=== PATIENT | male | born 1940 | race Asian ===

== ENCOUNTER 2017-05-01 08:33 | Inpatient (IN) | payer MEDICARE, OTHER ==
[~2017-05-01] VITALS: Ht 172.7 cm; Wt 79.0 kg
[~2017-05-01 08:33] MED LIST: ASPI-1159 PO; ATOR40TA70 PO; BRIM5DRO OP; CLOP75TA33 PO; DORZ10DR7 OP; FINA5TAB11 PO; FISH1CAP38 PO; GLIM4TAB2 PO; INSNOV SUBCUT; INSU100I19 SQ; METF500T4 PO; RANO500T3 PO; SILO8CAP PO; TELM80TA5 PO; XALAO EACHEYE
[2017-05-01] MEDS ORDERED: SODIUM CHLORIDE 0.9% 1,000 ML IV ONE (08:58)
[2017-05-01] MEDS ORDERED: NITROGLYCERIN OINT 1GM/INCH UDPKT TD ONE (09:00)
[2017-05-01 09:39] LABS: CLARITY URINE CLOUDY (CLEAR); COLOR URINE YELLOW (YELLOW); GLUCOSE URINE 3+ (NEGATIVE); KETONES URINE NEGATIVE (NEGATIVE); LEUKOCYTE ESTERASE URINE 2+ (NEGATIVE); NITRITE URINE POSITIVE (NEGATIVE); OCCULT BLOOD URINE TRACE (NEGATIVE); PROTEIN URINE NEGATIVE (NEGATIVE); SPECIFIC GRAVITY URINE 1.024 (1.005-1.030); UROBILINOGEN URINE 0.2 E.U./dL (0.2-1.0)
[2017-05-01 10:13] LABS: HEMATOCRIT. 40.4 % (42.0-52.0); HEMOGLOBIN. 13.6 g/dL (14.0-18.0); MEAN CORPUSCULAR HEMOGLOBIN 30.3 pg (28.0-32.0); MEAN CORPUSCULAR VOLUME 89.8 fL (80.0-94.0); MEAN PLATELET VOLUME 8.2 fl (7.4-10.4); PLATELET 136 x1000/uL (130-400); RED BLOOD CELL COUNT 4.49 mill/uL (4.7-6.1); RED CELL DISTRIBUTION WIDTH 13.8 % (11.6-14.6)
[2017-05-01] MEDS ORDERED: IBUPROFEN 600MG TABLET PO ONE (10:15)
[2017-05-01 10:22] LABS: INR 1.1; PARTIAL THROMBOPLASTIN TIME 24.2 sec (23.4-31.0); PROTHROMBIN TIME 11.4 sec (9.4-11.6)
[2017-05-01 10:34] LABS: CARBON DIOXIDE 24 mEq/L (21-32); CHLORIDE 108 mEq/L (98-107)
[2017-05-01] MEDS ORDERED: SODIUM CHLORIDE 0.9% 1,000 ML IV SCH (10:40)
[2017-05-01] MEDS ORDERED: PIPERACILLIN/TAZ 3.375G PREMIX 50 ML IV ONE (10:45)
[2017-05-01] MEDS ORDERED: SODIUM CHLORIDE 0.9% 1000ML BAG (SEPSIS BOLUS) IV ONE (10:45)
[2017-05-01 12:45] LABS: PLATELET ESTIMATE NORMAL
[2017-05-01] MEDS ORDERED: IBUPROFEN 400MG TABLET PO PRN (12:45)
[2017-05-01] MEDS ORDERED: ACETAMINOPHEN 325MG TABLET PO PRN (12:45)
[2017-05-01] MEDS ORDERED: DEXTROSE 50% WATER 50ML SYRINGE IV PRN ×2 (12:45→14:15)
[2017-05-01] MEDS ORDERED: BLOOD SUGAR DIAGNOSTIC STRIP TEST SCH (13:00)
[2017-05-01 13:10] VITALS: BP 118/67
[2017-05-01] MEDS ORDERED: INSULIN LISPRO 100 UNITS/ML SUBCUT SCH (13:10)
[2017-05-01] MEDS: ASPIRIN 81MG EC TABLET PO SCH (13:43)
[2017-05-01] MEDS: SODIUM CHLORIDE 0.45% 1,000 ML IV SCH ×2 (13:52→22:46)
[2017-05-01] MEDS ORDERED: ENOXAPARIN 80MG/0.8ML SYR SUBCUT NR (15:00)
[2017-05-01] MEDS: PIPERACILLIN/TAZ 3.375G PREMIX 50 ML IV SCH (17:20)
[2017-05-01] MEDS: BLOOD SUGAR DIAGNOSTIC STRIP TEST SCH ×2 (17:24→21:16)
[2017-05-01] MEDS: INSULIN LISPRO 100 UNITS/ML SUBCUT SCH ×2 (17:33→21:33)
[2017-05-01] MEDS ORDERED: PIPERACILLIN/TAZ 3.375G PREMIX 50 ML IV SCH (18:00)
[2017-05-01 20:00] VITALS: BP 162/73
[2017-05-01] MEDS: ATORVASTATIN CALCIUM 40MG TABLET PO SCH (20:25)
[2017-05-01] MEDS ORDERED: ZOLPIDEM TARTRATE 5MG TABLET PO PRN (21:00)
[2017-05-01] MEDS: INSULIN DETEMIR UD 100 UNITS/ML SYR SUBCUT SCH (21:33)
[2017-05-01] MEDS: RANOLAZINE 500 MG TAB.SR.12H PO SCH (22:45)
[2017-05-02] VITALS (12 sets, daily range): BP systolic 97–139; BP diastolic 41–91
[2017-05-02] MEDS: PIPERACILLIN/TAZ 3.375G PREMIX 50 ML IV SCH ×3 (01:28→17:55)
[2017-05-02] MEDS ORDERED: ENOXAPARIN 80MG/0.8ML SYR SUBCUT SCH (06:00)
[2017-05-02 06:36] LABS: BASOPHILS % 0.3 % (0.0-2.0); EOSINOPHILS % 0.6 % (0.0-5.0); HEMATOCRIT. 33.8 % (42.0-52.0); HEMOGLOBIN. 11.5 g/dL (14.0-18.0); LYMPHOCYTES % 9.5 % (20.0-50.0); MEAN CORPUSCULAR HEMOGLOBIN 30.6 pg (28.0-32.0); MEAN CORPUSCULAR VOLUME 89.5 fL (80.0-94.0); MEAN PLATELET VOLUME 8.8 fl (7.4-10.4); MONOCYTES % 10.7 % (2.0-8.0); NEUTROPHILS % 78.9 % (40.0-76.0); PLATELET 108 x1000/uL (130-400); RED BLOOD CELL COUNT 3.78 mill/uL (4.7-6.1)
[2017-05-02] MEDS: INSULIN LISPRO 100 UNITS/ML SUBCUT SCH ×4 (07:05→20:50)
[2017-05-02] MEDS: BLOOD SUGAR DIAGNOSTIC STRIP TEST SCH ×4 (07:05→20:48)
[2017-05-02] MEDS: ASPIRIN 81MG EC TABLET PO SCH (09:14)
[2017-05-02] MEDS: RANOLAZINE 500 MG TAB.SR.12H PO SCH ×2 (09:14→20:59)
[2017-05-02] MEDS: CLOPIDOGREL 75MG TABLET PO SCH (09:14)
[2017-05-02] MEDS: FINASTERIDE 5MG TABLET PO SCH (09:14)
[2017-05-02] MEDS ORDERED: MORPHINE SULFATE 4 MG/ML CPJ (NOT FOR IM USE) IV SCH (12:15)
[2017-05-02] MEDS: SODIUM CHLORIDE 0.45% 1,000 ML IV SCH (12:56)
[2017-05-02] MEDS ORDERED: LIDOCAINE HCL 1% 20ML VIAL (Pyxis) INJ ONE (13:09)
[2017-05-02] MEDS ORDERED: IODIXANOL 320MG/ML 100 ML BOTTLE IV ONE ×2 (13:09→14:09)
[2017-05-02] MEDS ORDERED: FENTANYL CITRATE/PF 50MCG/ML 2ML VIAL ONE (13:19)
[2017-05-02] MEDS ORDERED: MIDAZOLAM HCL 2 MG/2 ML VIAL ONE (13:19)
[2017-05-02] MEDS ORDERED: HEPARIN SODIUM 1,000 UNIT/1ML VIAL IV ONE (13:25)
[2017-05-02] MEDS ORDERED: ATROPINE SULFATE 0.1MG/ML 10ML DISP.SYRIN ONE ×2 (13:43→14:20)
[2017-05-02] MEDS ORDERED: IOVERSOL 240MG/ML 100ML BOTTLE IV ONE (13:50)
[2017-05-02] MEDS ORDERED: CLOPIDOGREL 75MG TABLET ONE (14:27)
[2017-05-02] MEDS ORDERED: ASPIRIN 325MG TABLET ONE (14:27)
[2017-05-02] MEDS ORDERED: CEFAZOLIN 1000MG PREMIX 50 ML IV ONE (14:35)
[2017-05-02] MEDS ORDERED: HYDROMORPHONE HCL/PF 2MG/ML (OR) ONE (14:40)
[2017-05-02] MEDS ORDERED: CLOPIDOGREL 75MG TABLET PO SCH (14:45)
[2017-05-02] MEDS ORDERED: SODIUM CHLORIDE 0.45% 1,000 ML IV SCH (14:45)
[2017-05-02] MEDS ORDERED: ATROPINE SULFATE 1MG/10ML SYR IV PRN (14:45)
[2017-05-02] MEDS ORDERED: ONDANSETRON HCL 4MG/2ML VIAL IV PRN (14:45)
[2017-05-02] MEDS ORDERED: ACETAMINOPHEN 325MG TABLET PO PRN (14:45)
[2017-05-02] MEDS ORDERED: MORPHINE SULFATE 4 MG/ML CPJ (NOT FOR IM USE) IV PRN (16:00)
[2017-05-02] MEDS: ATORVASTATIN CALCIUM 40MG TABLET PO SCH (20:59)
[2017-05-02] MEDS: INSULIN DETEMIR UD 100 UNITS/ML SYR SUBCUT SCH (22:48)
[2017-05-03] VITALS (16 sets, daily range): BP systolic 91–166; BP diastolic 35–111
[2017-05-03] MEDS: CEFAZOLIN 1000MG PREMIX 50 ML IV SCH ×2 (00:14→08:39)
[2017-05-03] MEDS: PIPERACILLIN/TAZ 3.375G PREMIX 50 ML IV SCH ×3 (02:30→18:00)
[2017-05-03] MEDS ORDERED: IPRATROPIUM/ALBUTEROL 0.5-3(2.5)MG/3ML NEB HHN PRN (05:00)
[2017-05-03] MEDS: BLOOD SUGAR DIAGNOSTIC STRIP TEST SCH ×4 (07:04→21:23)
[2017-05-03] MEDS: INSULIN LISPRO 100 UNITS/ML SUBCUT SCH ×4 (07:20→21:00)
[2017-05-03 07:49] LABS: HEMATOCRIT. 32.3 % (42.0-52.0); HEMOGLOBIN. 11.1 g/dL (14.0-18.0); MEAN CORPUSCULAR HEMOGLOBIN 30.7 pg (28.0-32.0); MEAN CORPUSCULAR VOLUME 89.4 fL (80.0-94.0); PLATELET 100 x1000/uL (130-400); RED BLOOD CELL COUNT 3.61 mill/uL (4.7-6.1); RED CELL DISTRIBUTION WIDTH 13.8 % (11.6-14.6)
[2017-05-03] MEDS: CLOPIDOGREL 75MG TABLET PO SCH ×2 (08:42)
[2017-05-03] MEDS: FINASTERIDE 5MG TABLET PO SCH (08:44)
[2017-05-03] MEDS: ASPIRIN 81MG EC TABLET PO SCH (08:44)
[2017-05-03] MEDS: ASPIRIN 325MG TABLET PO SCH (08:44)
[2017-05-03] MEDS: RANOLAZINE 500 MG TAB.SR.12H PO SCH ×2 (08:45→21:21)
[2017-05-03 08:53] LABS: TROPONIN I 5.6 ng/mL (0.00-0.04)
[2017-05-03 13:44] LABS: PLATELET ESTIMATE DECREASED
[2017-05-03] MEDS: ATORVASTATIN CALCIUM 40MG TABLET PO SCH (21:21)
[2017-05-03] MEDS: INSULIN DETEMIR UD 100 UNITS/ML SYR SUBCUT SCH (21:22)
[2017-05-04] VITALS: BP 154/71
[2017-05-04 02:00] VITALS: BP 165/90
[2017-05-04] MEDS: PIPERACILLIN/TAZ 3.375G PREMIX 50 ML IV SCH (03:05)
[2017-05-04 04:00] VITALS: BP 147/76
[2017-05-04] MEDS: BLOOD SUGAR DIAGNOSTIC STRIP TEST SCH (06:03)
[2017-05-04 06:05] VITALS: BP 143/76
[2017-05-04] MEDS: INSULIN LISPRO 100 UNITS/ML SUBCUT SCH (06:07)
[2017-05-04 07:20] VITALS: BP 143/76
[2017-05-04 07:24] LABS: BASOPHILS % 0.3 % (0.0-2.0); EOSINOPHILS % 0.9 % (0.0-5.0); HEMATOCRIT. 33.9 % (42.0-52.0); HEMOGLOBIN. 11.8 g/dL (14.0-18.0); LYMPHOCYTES % 11.2 % (20.0-50.0); MEAN CORPUSCULAR HEMOGLOBIN 30.5 pg (28.0-32.0); MEAN CORPUSCULAR VOLUME 87.8 fL (80.0-94.0); MEAN PLATELET VOLUME 8.9 fl (7.4-10.4); MONOCYTES % 10.9 % (2.0-8.0); NEUTROPHILS % 76.7 % (40.0-76.0); PLATELET 127 x1000/uL (130-400); RED BLOOD CELL COUNT 3.86 mill/uL (4.7-6.1); RED CELL DISTRIBUTION WIDTH 13.5 % (11.6-14.6)
[2017-05-04 08:44] LABS: CARBON DIOXIDE 24 mEq/L (21-32); CHLORIDE 109 mEq/L (98-107)
[2017-05-04] MEDS: ASPIRIN 325MG TABLET PO SCH (09:00)
[2017-05-04] MEDS ORDERED: POTASSIUM CHLORIDE 20MEQ TABLET SR PO NR (09:15)
[2017-05-04] MEDS: ASPIRIN 81MG EC TABLET PO SCH (09:23)
[2017-05-04] MEDS: CLOPIDOGREL 75MG TABLET PO SCH (09:23)
[2017-05-04] MEDS: FINASTERIDE 5MG TABLET PO SCH (09:24)
[2017-05-04] MEDS: RANOLAZINE 500 MG TAB.SR.12H PO SCH (09:24)
== END 2017-05-04 09:40 | disposition home health service (06) | DRG 246 ==
LOC: ER 09:02 → 8WST 10:42 → EDBEDREQ 10:45 → ENRESERV 12:28 → 3WST 05-02 15:20
PROC: 4A023N7 Measurement of Cardiac Sampling and Pressure, Left Heart, Percutaneous Approach (ICD-10-PCS; principal; 2017-05-02)
PROC: 027135Z Dilation of Coronary Artery, Two Arteries with Two Drug-eluting Intraluminal Devices, Percutaneous Approach (ICD-10-PCS; 2017-05-02)
PROC: B2111ZZ Fluoroscopy of Multiple Coronary Arteries using Low Osmolar Contrast (ICD-10-PCS; 2017-05-02)
DX: T82.855A Stenosis of coronary artery stent, initial encounter (principal); I21.4 Non-ST elevation (NSTEMI) myocardial infarction; N17.0 Acute kidney failure with tubular necrosis; A41.9 Sepsis, unspecified organism; E87.2 Acidosis; E11.22 Type 2 diabetes mellitus with diabetic chronic kidney disease; I44.1 Atrioventricular block, second degree; N39.0 Urinary tract infection, site not specified; B96.89 Other specified bacterial agents as the cause of diseases classified elsewhere; E78.00 Pure hypercholesterolemia, unspecified; E78.5 Hyperlipidemia, unspecified; H40.9 Unspecified glaucoma; I25.10 Atherosclerotic heart disease of native coronary artery without angina pectoris; I13.10 Hypertensive heart and chronic kidney disease without heart failure, with stage 1 through stage 4 chronic kidney disease, or unspecified chronic kidney disease; Y83.8 Other surgical procedures as the cause of abnormal reaction of the patient, or of later complication, without mention of misadventure at the time of the procedure; N18.9 Chronic kidney disease, unspecified; N40.0 Benign prostatic hyperplasia without lower urinary tract symptoms; Z79.4 Long term (current) use of insulin; I25.2 Old myocardial infarction; Z95.5 Presence of coronary angioplasty implant and graft; Z88.8 Allergy status to other drugs, medicaments and biological substances; Z79.899 Other long term (current) drug therapy; Z79.82 Long term (current) use of aspirin; Z79.84 Long term (current) use of oral hypoglycemic drugs; Y92.89 Other specified places as the place of occurrence of the external cause
CPT/HCPCS: 36415; 71010; 80048; 80053; 81001; 82962; 83605; 83690; 83880; 84484; 85025; 85347; 85610; 85730; 87040; 87077; 87086; 87186; 92928; 93005; 93306; 93454; 96374; 96375; 99285; C1725; C1760; C1769; C1874; C1887; C1893; J0461; J0690; J1170; J1644; J1650; J1815; J2250; J2270; J2543; J3010; J3490; J7030; J7620; L1830; Q9967

== ENCOUNTER → 2020-02-19 | Outpatient (CLI) | payer MEDICARE, BC ==
[~2020-02-19] MED LIST changes: -ASPI-1159 PO; +ASPI-1497 PO; -DORZ10DR7 OP; +DORZ10DR8 OP; +FURO40TA5 MT; -GLIM4TAB2 PO; +GLIM4TAB36 PO; +LOSA50TA41 MT; +METF-414 PO; -METF500T4 PO; -SILO8CAP PO; +SILO8CAP2 PO; -TELM80TA5 PO; +TELM80TA8 PO; +TIMO5DRO32 EACHEYE
== END | disposition home or self-care (01) ==
LOC: LAB 16:36
DX: R05 Cough (principal); Z20.828 Contact with and (suspected) exposure to other viral communicable diseases
CPT/HCPCS: 87635

== ENCOUNTER 2020-02-21 11:06 | Inpatient (IN) | payer MEDICARE, BC ==
[2020-02-21] VITALS (7 sets, daily range): BP systolic 112–151; BP diastolic 68–88
[~2020-02-21] VITALS: Ht 172.7 cm; Wt 78.0 kg
[~2020-02-21 11:06] MED LIST changes: -FURO40TA5 MT; -LOSA50TA41 MT; -TIMO5DRO32 EACHEYE
[2020-02-21] MEDS ORDERED: FURO40TA5 MT (12:14)
[2020-02-21] MEDS ORDERED: LOSA50TA41 MT (12:17)
[2020-02-21] MEDS ORDERED: TIMO5DRO32 EACHEYE (12:17)
[2020-02-21] MEDS ORDERED: LIDOCAINE HCL 1% 20ML VIAL (Pyxis) INJ ONE (12:18)
[2020-02-21] MEDS ORDERED: IODIXANOL 320MG/ML 100 ML BOTTLE IV ONE ×2 (12:19→14:17)
[2020-02-21] MEDS ORDERED: MIDAZOLAM HCL 2 MG/2 ML VIAL ONE (12:19)
[2020-02-21] MEDS ORDERED: FENTANYL CITRATE/PF 50MCG/ML 2ML VIAL ONE (12:19)
[2020-02-21] MEDS ORDERED: HEPARIN SODIUM 1,000 UNIT/1ML VIAL IV ONE (12:23)
[2020-02-21] MEDS ORDERED: ATROPINE SULFATE 0.1MG/ML 10ML DISP.SYRIN ONE (14:19)
[2020-02-21] MEDS ORDERED: EPINEPHRINE 0.1MG/ML (1:10,000) 10ML SYR ONE (14:20)
[2020-02-21] MEDS ORDERED: ASPIRIN 325MG TABLET ONE (14:25)
[2020-02-21] MEDS ORDERED: CLOPIDOGREL 75MG TABLET ONE (14:25)
[2020-02-21] MEDS ORDERED: PHENYLEPHRINE HCL 10 MG/ML 1ML (IV VIAL) IV ONE (14:29)
[2020-02-21] MEDS ORDERED: ATROPINE SULFATE 1MG/10ML SYR IV PRN (15:00)
[2020-02-21] MEDS ORDERED: ONDANSETRON HCL 4MG/2ML INJ IV PRN (15:00)
[2020-02-21] MEDS ORDERED: ACETAMINOPHEN 325MG TABLET PO PRN (15:00)
[2020-02-21] MEDS ORDERED: FUROSEMIDE 20MG/2ML VIAL IV SCH (15:15)
[2020-02-21] MEDS: BLOOD SUGAR DIAGNOSTIC STRIP TEST SCH (22:18)
[2020-02-21] MEDS ORDERED: DEXTROSE 50% WATER 50ML SYRINGE IV PRN (22:30)
[2020-02-21] MEDS ORDERED: ATORVASTATIN CALCIUM 40MG TABLET PO SCH (23:00)
[2020-02-21] MEDS ORDERED: INSULIN GLARGINE UD 100 UNITS/ML SYR SUBCUT SCH (23:00)
[2020-02-21] MEDS: INSULIN LISPRO 100 UNITS/ML SUBCUT SCH (23:01)
[2020-02-22] VITALS (7 sets, daily range): BP systolic 106–132; BP diastolic 65–80
[2020-02-22] MEDS: BLOOD SUGAR DIAGNOSTIC STRIP TEST SCH (06:47)
[2020-02-22] MEDS ORDERED: GLIMEPIRIDE 2MG TABLET PO SCH (07:20)
[2020-02-22] MEDS: INSULIN LISPRO 100 UNITS/ML SUBCUT SCH (07:36)
[2020-02-22 07:59] LABS: BASOPHILS % 0.7 % (0.0-2.0); EOSINOPHILS % 1.7 % (0.0-5.0); HEMATOCRIT. 41.5 % (42.0-52.0); HEMOGLOBIN. 13.8 g/dL (14.0-18.0); MEAN CORPUSCULAR HEMOGLOBIN 28.7 pg (28.0-32.0); MEAN CORPUSCULAR VOLUME 86.3 fL (80.0-94.0); MONOCYTES % 10.4 % (2.0-8.0); NEUTROPHILS % 68.2 % (40.0-76.0); PLATELET 173 x1000/uL (130-400); RED BLOOD CELL COUNT 4.81 mill/uL (4.7-6.1); RED CELL DISTRIBUTION WIDTH 14.6 % (11.6-14.6)
[2020-02-22] MEDS ORDERED: ASPIRIN 325MG TABLET PO SCH (09:00)
[2020-02-22] MEDS ORDERED: CLOPIDOGREL 75MG TABLET PO SCH (09:00)
[2020-02-22] MEDS ORDERED: FUROSEMIDE 40MG TABLET PO SCH (09:00)
[2020-02-22] MEDS ORDERED: LEVEMIR 25 UNIT SUBCUT SCH (21:00)
[2020-02-22] MEDS ORDERED: FISH OIL/OMEGA-3 FATTY ACIDS 1000MG CAPSULE PO SCH (21:00)
== END 2020-02-22 09:39 | disposition home or self-care (01) | DRG 247 ==
LOC: CCL 11:06 → 3WST 11:07
PROVIDERS: ADMIT Specialist; ATTEND Specialist
PROC: 027034Z Dilation of Coronary Artery, One Artery with Drug-eluting Intraluminal Device, Percutaneous Approach (ICD-10-PCS; principal; 2020-02-21)
PROC: 4A023N7 Measurement of Cardiac Sampling and Pressure, Left Heart, Percutaneous Approach (ICD-10-PCS; 2020-02-21)
PROC: B2111ZZ Fluoroscopy of Multiple Coronary Arteries using Low Osmolar Contrast (ICD-10-PCS; 2020-02-21)
DX: I25.110 Atherosclerotic heart disease of native coronary artery with unstable angina pectoris (principal); I50.42 Chronic combined systolic (congestive) and diastolic (congestive) heart failure; E11.9 Type 2 diabetes mellitus without complications; E78.5 Hyperlipidemia, unspecified; F41.9 Anxiety disorder, unspecified; I11.0 Hypertensive heart disease with heart failure; I25.5 Ischemic cardiomyopathy; I50.82 Biventricular heart failure; N28.9 Disorder of kidney and ureter, unspecified; N40.0 Benign prostatic hyperplasia without lower urinary tract symptoms; Z79.4 Long term (current) use of insulin; Z82.3 Family history of stroke; Z82.49 Family history of ischemic heart disease and other diseases of the circulatory system; I25.2 Old myocardial infarction; Z88.8 Allergy status to other drugs, medicaments and biological substances
CPT/HCPCS: 36415; 80048; 82962; 85025; 85347; 87635; 92928; 93005; 93458; C1725; C1760; C1769; C1874; C1887; C1893; J0461; J1644; J1815; J1940; J2250; J2370; J3010; J3490; Q9967

== ENCOUNTER → 2020-11-19 | Outpatient (CLI) | payer MEDICARE, BC ==
[~2020-11-19] MED LIST changes: +FURO40TA5 MT; +LOSA50TA41 MT; +TIMO5DRO32 EACHEYE
== END | disposition home or self-care (01) ==
LOC: LAB 06:21
PROVIDERS: ATTEND Specialist
DX: R05 Cough (principal); Z20.822 Contact with and (suspected) exposure to COVID-19
CPT/HCPCS: 87426

== ENCOUNTER → 2020-11-19 | Day surgery (SDC) | payer MEDICARE, BC ==
[~2020-11-19] MED LIST changes: +ACETAMINOPHEN 325MG TABLET PO PRN; +FENTANYL CITRATE/PF 50MCG/ML 2ML VIAL ONE; +FENTANYL CITRATE/PF 50MCG/ML 5ML VIAL ONE; +HEPARIN SODIUM 1,000 UNIT/1ML VIAL IV ONE; +IODIXANOL 320MG/ML 100 ML BOTTLE IV ONE; +IOHEXOL-300 100 ML BOTTLE ONE; +LIDOCAINE HCL 1% 20ML VIAL (Pyxis) INJ ONE; +MIDAZOLAM HCL 2 MG/2 ML VIAL ONE; +MIDAZOLAM HCL 5 MG/5 ML VIAL ONE; +NICARDIPINE 100MCG/ML 10ML VIAL (CATH LAB) IV ONE; +NITROGLYCERIN 50MCG/ML 10ML VIAL (CATH LAB) IV ONE
== END | disposition home or self-care (01) ==
LOC: CCL 06:26
PROVIDERS: ATTEND Specialist
DX: I25.110 Atherosclerotic heart disease of native coronary artery with unstable angina pectoris (principal); I25.5 Ischemic cardiomyopathy; I25.2 Old myocardial infarction; I10 Essential (primary) hypertension; E78.5 Hyperlipidemia, unspecified; E11.9 Type 2 diabetes mellitus without complications; Z95.5 Presence of coronary angioplasty implant and graft; Z79.899 Other long term (current) drug therapy; Z79.82 Long term (current) use of aspirin; Z79.84 Long term (current) use of oral hypoglycemic drugs; Z82.49 Family history of ischemic heart disease and other diseases of the circulatory system; Z83.3 Family history of diabetes mellitus; Z98.890 Other specified postprocedural states; Z88.8 Allergy status to other drugs, medicaments and biological substances; Z20.822 Contact with and (suspected) exposure to COVID-19
CPT/HCPCS: 87426; 93458; 99152; C1769; C1887; C1893; J1644; J2250; J3010; J3490; Q9967; G0500